=== PATIENT | female | born 1955 | race Caucasian/White ===

== ENCOUNTER 2021-11-15 19:21 | Observation (INO) | payer MEDICARE, OTHER, SELFPAY ==
[2021-11-15 19:25] VITALS: BP 149/72; PULSE 86; RESP 16; TEMP 36.6; O2SAT 94
--- NOTE | 2021-11-15 19:30 | RT.EKG_ITS ---
APPROVED REPORT Exam: Resting ECG Reason for Exam: dizzy Patient Location: E HR:73 bpm ECG Measurements Heart Rate 73 AXIS WA 154 P 65 QRSd 121 QRS -60 QT 393 T 50 QTc 433 Conclusion Sinus rhythm...normal P axis, V-rate 60- 99 Left ventricular hypertrophy...multiple LVH criteria. Sinus. No STEMI. I have reviewed and interpreted ECG and agree with software generated interpretation.
--- NOTE | 2021-11-15 20:00 | DI.RAD_ITS ---
Exam(s) XR CHEST 2V PA LATERAL EXAM: XR CHEST 2V PA LATERAL CLINICAL HISTORY: fall, HI, arm injury TECHNIQUE: 2D digital imaging was performed. COMPARISON: No exams were available for comparison FINDINGS: Exam is limited by the patient's arm overlying the lower portion of left lung. MEDIASTINUM: Normal. HEART: Normal. PULMONARY VASCULATURE: Normal. LUNGS: Clear. PLEURAL SPACE: No pleural effusion or pneumothorax. BONE:Unremarkable for age. IMPRESSION: No acute abnormality. DATA REPOSITORY: RADIATION DOSE DELIVERED:
--- NOTE | 2021-11-15 20:00 | DI.RAD_ITS ---
Exam(s) XR HUMERUS RT EXAM: XR HUMERUS RT CLINICAL HISTORY: fall, pain. TECHNIQUE: 2D digital imaging was performed. COMPARISON: No exams were available for comparison FINDINGS: BONES: No acute fracture is present. No bony destructive lesion is seen. Visualized portion of the el bow are unremarkable. Degenerative changes are noted at the glenohumeral joint and AC joints. SOFT TISSUE: Normal. IMPRESSION: Unremarkable radiographs of the right humerus. DATA REPOSITORY: RADIATION DOSE DELIVERED:
--- NOTE | 2021-11-15 20:00 | DI.CT_ITS ---
Exam(s) CT HEAD CERVICAL SPINE WO EXAM: CT HEAD CERVICAL SPINE WO CLINICAL HISTORY: fall, HI. TECHNIQUE: Imaging Protocol: Axial computed tomography images with coronal and sagittal reformatted images were created and reviewed COMPARISON: No exams were available for comparison FINDINGS: Head CT Ventricles and Extra axial spaces: Normal in size and morphology for the patient's age. Hemorrhage: None. Cerebral parenchyma: Normal. Midline shift: None. Brainstem/Cerebellum: Normal. Calvarium: Normal. Visualized Paranasal sinuses/Mastoids: Clear. Cervical Spine CT BONES: Vertebral body heights are maintained. Alignment is normal. There is no evidence of acute frac ture. Mild degenerative disc changes and facet degenerative changes are seen . SOFT TISSUES: No paraspinal hematoma. The airway appears intact. No pneumothorax is seen at the lung apices. IMPRESSION: Head CT: No acute abnormality. C-spine CT: Mild degenerative changes, no acute abnormality. RADIATION DOSE DELIVERED: 1,440.74mGy.cm Total DLP DATA REPOSITORY: All CT scans at this facility are submitted to the National Radiology Data Registry (NRDR) Dose Index Registry (DIR) with the [employer] (ACR). RADIATION OPTIMIZATION: All CT scans at this facility use at least one of these dose optimization te chniques: automated exposure control; mA and/or kV adjustment per patient size (includes targeted exa ms where dose is matched to clinical indication); or iterative reconstruction.
[2021-11-15] MEDS: fentaNYL 100 MCG/2 ML VIAL (20:08)
[2021-11-15] MEDS: Lactated Ringers 1,000 ML 1000 ML IV (20:32)
[2021-11-15] MEDS: Acetaminophen 325 MG TAB 650 MG PO (20:33)
[2021-11-15] MEDS: HYDROmorphone 2 MG/ML SYR 0.5 MG IVP ×2 (20:33→22:14)
[2021-11-15 20:45] LABS: Abs Immature Grans 0.02 10^3/uL (0.0-0.06); Absolute Basophil Count 0.03 10^3/uL (0.0-0.2); Absolute Lymphocyte Count 2.19 10^3/uL (1.2-3.4); Absolute Monocyte Count 0.58 10^3/uL (0.1-0.8); Absolute Neutrophil Count 4.05 10^3/uL (1.2-6.7); Basophils % 0.4; HCT 41.1 % (36.0-46.0); Immature Grans % 0.3; Lymphocytes % 31.9; MCH 31.7 pg (27.0-33.0); MCHC 34.1 % (32.0-36.0); MCV 93 fL (80-95); MPV 10.9 fL (8.0-11.0); Monocytes % 8.4; Platelet Count 195 10^3/uL (130-400); RBC 4.41 10^6/uL (3.93-5.22); RDW 12.9 % (11.7-14.6); RDW-SD 44.2 fL; WBC 6.87 10^3/uL (4.4-10.8)
[2021-11-15 21:09] LABS: ALT 41 U/L (14-59); AST 31 U/L (15-37); Albumin 3.8 g/dL (3.4-5.0); Alkaline Phosphatase 79 U/L (46-116); Anion Gap 10.2 mmol/L (3-11); BUN 16 mg/dL (7-18); Bilirubin, Total 0.6 mg/dL (0.2-1.0); CO2 25.8 mmol/L (21.0-32.0); CREATININE 0.9 mg/dL (0.55-1.02); Chloride 105 mmol/L (98-107); Estimated GFR 70.51 (mL/min/1.73m2); Glucose 99 mg/dL (74-106); Magnesium 1.8 mg/dL (1.8-2.4); Potassium 3.5 mmol/L (3.5-5.1); Sodium 141 mmol/L (136-145); Total Protein 7.6 g/dL (6.4-8.2); Troponin I < 50 ng/L (<or=60)
--- NOTE | 2021-11-15 21:15 | DI.RAD_ITS ---
Exam(s) XR SHOULDER RT COMPLETE 2+V EXAM: XR SHOULDER RT COMPLETE 2+V CLINICAL HISTORY: pain post fall. TECHNIQUE: 2D digital imaging was performed. Five views. COMPARISON: CR,XR XR CHEST 2V PA LATERAL from 11/15/2021 FINDINGS: BONES: No acute fracture is present. No bony destructive lesion is seen. JOINTS: No dislocation present. There is spurring at the AC joint and glenohumeral joint. SOFT TISSUE: Normal. IMPRESSION: Degenerative changes. No visible acute fracture. DATA REPOSITORY: RADIATION DOSE DELIVERED:
--- NOTE | 2021-11-15 21:15 | DI.VRAD_ITS ---
PROCEDURE INFORMATION: Exam: CT Head Without Contrast Exam date and time: 11/15/2021 8:35 PM Age: 66 years old Clinical indication: Trauma, fall TECHNIQUE: Imaging protocol: Computed tomography of the head without contrast. COMPARISON: No relevant prior studies available. FINDINGS: Brain: No intracranial hemorrhage or extra-axial fluid collection. No evidence of mass effect or midline shift. Velasco-white matter differentiation is intact. Cerebral ventricles: No ventriculomegaly. Paranasal sinuses: Unremarkable. No fluid levels. Mastoid air cells: Unremarkable. Bones/joints: No acute osseus lesion or fracture. Soft tissues: Unremarkable. IMPRESSION: No acute intracranial pathology. PROCEDURE INFORMATION: Exam: CT Cervical Spine Without Contrast Exam date and time: 11/15/2021 8:35 PM Age: 66 years old Clinical indication: Trauma, fall TECHNIQUE: Imaging protocol: Computed tomography of the cervical spine without contrast. COMPARISON: No relevant prior studies available. FINDINGS: Bones/joints: Cervical vertebral body heights are maintained. No locked or perched facets. Multilevel facet arthropathy. No acute cervical spine fracture. The dens is intact. Atlanto-axial intervals are normal. Multilevel degenerative changes with intervertebral disc height loss and osteophyte formation, with multilevel areas of mild canal stenosis. Soft tissues: Unremarkable. IMPRESSION: No acute cervical spine fracture. Dictated and Authenticated by: Tejinder Alexis MD. Ordering:MAGGIE Stone MD
--- NOTE | 2021-11-15 21:15 | DI.RAD_ITS ---
Exam(s) XR ELBOW RT COMPLETE EXAM: XR ELBOW RT COMPLETE CLINICAL HISTORY: fall, pain. TECHNIQUE: 2D digital imaging was performed. Two limited views. COMPARISON: CR,XR XR SHOULDER RT COMPLETE 2+V from 11/15/2021 FINDINGS: The exam is extremely limited by positioning. BONES: No acute fracture is present. No bony destructive lesion is seen. JOINTS: The elbow is normally aligned. No joint effusion is seen. SOFT TISSUE: Normal. IMPRESSION: Limited exam. No gross fracture. DATA REPOSITORY: RADIATION DOSE DELIVERED:
--- NOTE | 2021-11-15 21:35 | DI.VRAD_ITS ---
PROCEDURE INFORMATION: Exam: XR Chest Exam date and time: 11/15/2021 8:56 PM Age: 66 years old Clinical indication: Other: Fall, TECHNIQUE: Imaging protocol: Radiologic exam of the chest. Views: 2 views. COMPARISON: CR XR HUMERUS RT 11/15/2021 8:53 PM FINDINGS: Lungs: The left lung base is not well assessed secondary to overlying arm. If there is concern for abnormality in this region, a repeat radiograph is recommended with the arm, if possible, positioned outside of the field of view. There is a 3 mm nodular density overlying the left lower lung which may represent something external to the patient. Elsewhere, no focal consolidation is seen. Pleural spaces: No pneumothorax. There is haziness to the right costophrenic angle for which a small effusion is not excluded. Heart/Mediastinum: The cardiomediastinal contours are within normal limits. Diaphragm: There is elevation of the right hemidiaphragm. Bones/joints: There are skeletal degenerative changes. There is a possible fracture to the left glenoid region. IMPRESSION: 1.The left lung base is not well assessed secondary to overlying arm. There is a 3 mm nodular density overlying the left lower lung which may represent something external to the patient. For further evaluation of both of these findings, a repeat frontal radiograph is recommended with the left forearm, if possible, positioned outside of the field of view. In addition, the patient should be assessed for overlying densities. 2. Haziness to the right costophrenic angle for which a small effusion is not excluded. 3. Possible fracture to the left glenoid. Dedicated left shoulder radiographs recommended. 4. Elevation of the right hemidiaphragm. Other findings/details as above. Dictated and Authenticated by: Michelle Araujo MD. Ordering:MAGGIE Stone MD
--- NOTE | 2021-11-15 21:36 | DI.VRAD_ITS ---
Addendum created by Michelle Araujo MD on 11/15/2021 10:20:34 PM EDT: THIS REPORT CONTAINS FINDINGS THAT MAY BE CRITICAL TO PATIENT CARE. The findings were verbally communicated via telephone conference with Bertha Ortiz at 10:14 PM EDT on 11/15/2021. The findings were acknowledged and understood. The patient is having pain in both her right humerus and elbow. Shoulder and elbow radiographs were also reviewed. Please refer to those reports. A CT scan of the right shoulder/humerus/and elbow regions was recommended. Initial report created on 11/15/2021 9:35:54 PM EDT: PROCEDURE INFORMATION: Exam: XR Right Humerus Exam date and time: 11/15/2021 8:53 PM Age: 66 years old Clinical indication: Other: Fall, pain TECHNIQUE: Imaging protocol: Radiologic exam of the Right humerus. Views: 2 or more views. COMPARISON: CT HEAD CERVICAL SPINE WO 11/15/2021 8:35 PM FINDINGS: Bones/joints: No acute fracture or dislocation identified. There are skeletal degenerative changes. Soft tissues: No unusual soft tissue calcifications. IMPRESSION: 1. No acute fracture or dislocation identified. If symptoms persist or remain concerning, consider follow-up imaging in 7 days or alternative imaging modalities. Dictated and Authenticated by: Michelle Araujo MD. Ordering:MAGGIE Stone MD
--- NOTE | 2021-11-15 21:51 | W.ED.GENAD ---
Discharge Plan Disposition Patient Disposition: [facility] INPATIENT Condition: Improving Discharge Details Clinical Impression: Pre-syncope, Elbow fracture, right Admit Date/Time: 11/15/21 23:46 Admit Provider: Yayo Akbar Attending Provider: Yayo Akbar Primary Care Provider: M[facility],Local ED Provider: Bertha Ortiz Discharge Data Discharge Date/Time-TO BE ENTERED AT DEPARTURE: 11/16/21 00:48 Medical Decision Making Patient unfortunately has been in significant discomfort, she was placed in a posterior splint and sling She will need outpatient orthopedic follow-up Unfortunately while we are placing the splint, the patient was very nauseous and presyncopal, she is unable to stand and ambulate and is in significant pain She will need admission overnight for observation, fluid resuscitation, and pain control She is visiting from [place] so will need a copy of her CD and Ortho follow-up when she returns from She is neurovascularly intact Her CT head and cervical spine do not show evidence of acute abnormality, chest x-ray is within normal limits She had numerous x-rays ordered and I spoke with virtual radiologist recommends CT imaging, this does show that patient has a fracture to her elbow consisting of ulna and humerus involvement Medical Records Medical records reviewed: Yes I reviewed the patient's medical records. Lab Data Lab results reviewed: Yes I reviewed the patient's lab results. HPI General Date/Time Provider Initiated Documentation: 11/15/21 19:57. HPI Narrative: This 66-year-old female presents today for episode of lightheadedness and subsequent fall. She states that she had not had anything to eat or drink today and was getting ready for a attendance. She states that she was walking on the stairs and felt lightheaded, reportedly fell down 3 steps. Uncertain whether or not she lost consciousness. She landed on her back. She is unsure if she hit her head. She denies any vision change or vomiting. She did have some mild nausea. She predominantly is complaining of right elbow and humerus tenderness. She denies anticoagulation. She denies any chest pain or palpitations prior to episode. She denies any dizziness. Related Data Home Medications Medication Instructions Recorded Confirmed atorvastatin 10 mg tablet (Lipitor) 10 mg PO DAILY 11/15/21 11/15/21 escitalopram oxalate 20 mg tablet 30 mg PO DAILY 11/15/21 11/15/21 (Lexapro) famotidine 40 mg/5 mL (8 mg/mL) 40 mg PO DAILY 11/15/21 11/15/21 oral suspension fluticasone propionate 220 2 puff inhalation BID 11/15/21 11/15/21 mcg/actuation HFA aerosol inhaler lamotrigine 100 mg tablet 100 mg PO DAILY 11/15/21 11/15/21 (Lamictal) ibuprofen 800 mg tablet 800 mg PO TID PRN #30 tabs 11/16/21 tramadol 50 mg tablet 50 mg PO Q8H PRN #30 tabs 11/16/21 Previous Rx's Medication Instructions Recorded ibuprofen 800 mg tablet 800 mg PO TID PRN #30 tabs 11/16/21 tramadol 50 mg tablet 50 mg PO Q8H PRN #30 tabs 11/16/21 Allergies Allergy/AdvReac Type Severity Reaction Status Date / Time codeine Allergy Severe Itching Unverified 11/15/21 19:41 levofloxacin [From Levaquin] AdvReac Intermediate Headache Unverified 11/15/21 19:41 morphine AdvReac Intermediate Other (See Unverified 11/15/21 19:42 Comment) General Stated Complaint: GenMedical SAUL: 3 Review of Systems All systems reviewed & are unremarkable except as noted in HPI and below PFSH All Active Problems (Updated 11/17/21 @ 00:01 by FOREST CORTES) Reactive airway disease (Acute) Elbow fracture, right (Acute) Social History Smoking/Tobacco Use Status: Never Smoking risk assessment performed?: Yes Alcohol Intake: current Alcohol Intake frequency: 0-2 drinks per day Alcohol type: wine Drug use: Never Substance use type: does not use Do you feel safe at home: Yes Do you feel safe in your relationship?: Yes Exam Const General: cooperative and acute distress Orientation: alert and oriented x3 HENMT Head: normal to inspection Mouth: oral mucosae normal Eyes Pupils: PERRL Neck Other: no midline tenderness Chest Chest: normal inspection of the chest Resp Effort & Inspection: normal respiratory effort Auscultation: clear to auscultation bilaterally Cardio Rate: regular rate Rhythm: regular rhythm Other: distal pulses intact GI Inspection: normal to inspection Other: non-tender Skin General skin exam: no rashes or lesions noted Neuro General: patient alert and patient oriented x3 Other: GCS 15, strength and sensation intactdistally Extrem Other: Right elbow, humerus, right shoulder tenderness, neurovascularly intact Course Vital Signs Vital signs: Vital Signs Temperature 36.6 C 11/15/21 19:25 Pulse 86 11/15/21 19:25 Respiratory Rate 16 11/15/21 19:25 Blood Pressure 149/72 H 11/15/21 19:25 Pulse Oximetry 94 11/15/21 19:25 Temperature 36.6 C 11/15/21 19:25 Temperature Source Oral 11/15/21 19:25 Pulse 86 11/15/21 19:25 Respiratory Rate 16 11/15/21 19:25 Respiratory Effort Non-Labored 11/15/21 19:48 Blood Pressure 149/72 H 11/15/21 19:25 Blood Pressure Position Sitting 11/15/21 19:25 Pulse Oximetry 94 11/15/21 19:25 Oxygen Delivery Method Room Air 11/15/21 19:25 Oxygen Flow Rate 0 11/15/21 19:25 Pain Level 10 11/15/21 19:25 Lab/Test Results Lab/Test Results: Laboratory Tests Range/Units 11/15/21 11/15/21 11/15/21 20:08 20:08 20:15 WBC Cancelled RBC Cancelled Hgb Cancelled Hct Cancelled MCV Cancelled MCH Cancelled MCHC Cancelled RDW Cancelled Plt Count Cancelled MPV Cancelled Immature Gran % Cancelled Neutrophils % Cancelled Band Neutrophils % Cancelled Lymphocytes % Cancelled Atypical Lymphs % Cancelled Monocytes % Cancelled Eosinophils % Cancelled Basophils % Cancelled Metamyelocytes % Cancelled Myelocytes % Cancelled Promyelocytes % Cancelled Other Cells % Cancelled Nucleated RBC % Cancelled Absolute Neutrophils Cancelled Absolute Lymphocytes Cancelled Absolute Monocytes Cancelled Absolute Eosinophils Cancelled Absolute Basophils Cancelled RBC Morphology Cancelled Polychromasia Cancelled Hypochromasia Cancelled Poikilocytosis Cancelled Basophilic Stippling Cancelled Anisocytosis Cancelled Microcytosis Cancelled Macrocytosis Cancelled Spherocytes Cancelled Tear Drop Cells Cancelled Ovalocytes Cancelled Stomatocytes Cancelled Fowler-Sleepy Eye Bodies Cancelled Mantee Cells/Echinocytes Cancelled Acanthocytes (Spur) Cancelled Schistocytes Cancelled Sodium Cancelled 141 Potassium Cancelled 3.5 Chloride Cancelled 105 Carbon Dioxide Cancelled 25.8 Anion Gap Cancelled 10.2 BUN Cancelled 16 Creatinine Cancelled 0.9 Est GFR (CKD-EPI 2020) Cancelled 70.51 Glucose Cancelled 99 Calcium Cancelled 9.0 Magnesium Cancelled 1.8 Total Bilirubin Cancelled 0.6 AST Cancelled 31 ALT Cancelled 41 Alkaline Phosphatase Cancelled 79 Troponin I (<or=60) ng/L < 50 Total Protein Cancelled 7.6 Albumin Cancelled 3.8 Range/Units 11/15/21 20:15 WBC 6.87 RBC 4.41 Hgb 14.0 Hct 41.1 MCV 93 MCH 31.7 MCHC 34.1 RDW 12.9 Plt Count 195 MPV 10.9 Immature Gran % 0.3 Neutrophils % 59.0 Band Neutrophils % Lymphocytes % 31.9 Atypical Lymphs % Monocytes % 8.4 Eosinophils % 0.0 Basophils % 0.4 Metamyelocytes % Myelocytes % Promyelocytes % Other Cells % Nucleated RBC % 0.0 Absolute Neutrophils 4.05 Absolute Lymphocytes 2.19 Absolute Monocytes 0.58 Absolute Eosinophils 0.00 Absolute Basophils 0.03 RBC Morphology Polychromasia Hypochromasia Poikilocytosis Basophilic Stippling Anisocytosis Microcytosis Macrocytosis Spherocytes Tear Drop Cells Ovalocytes Stomatocytes Fowler-Sleepy Eye Bodies Phil Cells/Echinocytes Acanthocytes (Spur) Schistocytes Sodium Potassium Chloride Carbon Dioxide Anion Gap BUN Creatinine Est GFR (CKD-EPI 2020) Glucose Calcium Magnesium Total Bilirubin AST ALT Alkaline Phosphatase Troponin I (<or=60) ng/L Total Protein Albumin
--- NOTE | 2021-11-15 22:09 | DI.VRAD_ITS ---
Addendum created by Michelle Araujo MD on 11/15/2021 10:19:07 PM EDT: THIS REPORT CONTAINS FINDINGS THAT MAY BE CRITICAL TO PATIENT CARE. The findings were verbally communicated via telephone conference with Bertha Ortiz at 10:14 PM EDT on 11/15/2021. The findings were acknowledged and understood. The patient is having pain in both her right humerus and elbow. Right elbow radiographs were also reviewed. Given exam limitations on the right elbow radiographs, a CT scan of the right shoulder/humerus/and elbow regions was recommended. Initial report created on 11/15/2021 10:08:38 PM EDT: PROCEDURE INFORMATION: Exam: XR Right Shoulder Exam date and time: 11/15/2021 9:49 PM Age: 66 years old Clinical indication: Other: Fall, pain TECHNIQUE: Imaging protocol: Radiologic exam of the Right shoulder. Views: 2 or more views. COMPARISON: CR XR HUMERUS RT 11/15/2021 8:53 PM FINDINGS: Bones/joints: There are lucencies in the humeral head on series 3, image 1 which could represent subtle fractures. CT scan recommended for further evaluation. There are skeletal degenerative changes. Soft tissues: No unusual soft tissue calcifications. IMPRESSION: 1. There are lucencies in the humeral head on series 3, image 1 which could represent subtle fractures. CT scan recommended for further evaluation. Other findings/details as above. Dictated and Authenticated by: Michelle Araujo MD. Ordering:MAGGIE Stone MD
--- NOTE | 2021-11-15 22:15 | DI.CT_ITS ---
Exam(s) CT UPPER EXTREMITY RT WO EXAM: CT UPPER EXTREMITY RT WO CLINICAL HISTORY: tenderness right elbow, possible fracture, humueru TECHNIQUE: Imaging Protocol: Axial computed tomography images with coronal and sagittal reformatted images were created and reviewed. The field of view includes from above the AC joint through the pro ximal shafts of the radius and ulna. CONTRAST MATERIAL: Noncontrast COMPARISON: CR,XR XR ELBOW RT COMPLETE from 11/15/2021 CR,XR XR SHOULDER RT COMPLETE 2+V from 11/15/2021 FINDINGS: The exam is limited by patient positioning in part due to body habitus. Bones: There is a fracture seen extending through the proximal ulna without definite intra-articular extension. A tiny comminuted fragment is seen at the coronoid process Joints: There are degenerative changes at the AC joint and glenohumeral joint. There is spurring at the humeral head and tip of the acromion. Degenerative changes are also noted at the elbow. Soft Tissues: Normal. IMPRESSION: Limited exam due to patient body habitus and position. There is a nondisplaced fracture of the proxi mal ulna a small comminuted fracture at the coronoid process. No fracture is seen involving the shou lder. RADIATION DOSE DELIVERED: 343.97mGy.cm Total DLP DATA REPOSITORY: All CT scans at this facility are submitted to the National Radiology Data Registry (NRDR) Dose Index Registry (DIR) with the [employer] (ACR). RADIATION OPTIMIZATION: All CT scans at this facility use at least one of these dose optimization te chniques: automated exposure control; mA and/or kV adjustment per patient size (includes targeted exa ms where dose is matched to clinical indication); or iterative reconstruction.
--- NOTE | 2021-11-15 22:17 | DI.VRAD_ITS ---
PROCEDURE INFORMATION: Exam: XR Right Elbow Exam date and time: 11/15/2021 9:58 PM Age: 66 years old Clinical indication: Other: Fall, pain . The patient is having pain in both her right humerus and elbow. TECHNIQUE: Imaging protocol: Radiologic exam of the Right elbow. Views: 3 or more views. COMPARISON: CR XR SHOULDER RT COMPLETE 2+V 11/15/2021 9:49 PM FINDINGS: Limitations: Compromised examination secondary to overlapping structures and patient positioning. Bones/joints: There is a linear lucency through the medial epicondyle, concerning for fracture. Soft tissues: No unusual soft tissue calcifications. The fat pads are not well assessed. IMPRESSION: 1. Limited examination. There is a linear lucency through the medial epicondyle, concerning for fracture. Other findings/details as above. THIS REPORT CONTAINS FINDINGS THAT MAY BE CRITICAL TO PATIENT CARE. The findings were verbally communicated via telephone conference with Bertha Ortiz at 10:14 PM EDT on 11/15/2021. The findings were acknowledged and understood. The patient is having pain in both her right humerus and elbow. Given exam limitations, a CT scan of the right shoulder/humerus/and elbow regions was recommended. Dictated and Authenticated by: Michelle Araujo MD. Ordering:MAGGIE Stone MD
--- NOTE | 2021-11-15 23:13 | DI.VRAD_ITS ---
PROCEDURE INFORMATION: Exam: CT Right Upper Extremity Without Contrast Exam date and time: 11/15/2021 10:25 PM Age: 66 years old Clinical indication: Other: Tenderness right elbow, possible fracture TECHNIQUE: Imaging protocol: Computed tomography of the Right upper extremity without contrast. COMPARISON: CR XR SHOULDER RT COMPLETE 2+V 11/15/2021 9:49 PM FINDINGS: Bones/joints: Compromised examination secondary to patient positioning. There is a fracture through the lateral aspect of the olecranon process. There is also a possible fracture through the coronoid process of the proximal ulna on series 8, image 33. There is also some irregularity to the lateral epicondyle of the humerus on series 5, image 525; series 8, image 44, which is worrisome for fracture. There are skeletal degenerative changes. Soft tissues: No unusual soft tissue calcifications. IMPRESSION: 1. Compromised examination secondary to patient positioning. 2. Fracture through the lateral aspect of the olecranon process of the ulna. Possible fracture through the coronoid process of the proximal ulna. 3. Irregularity to the lateral epicondyle of the humerus, also worrisome for fracture. Other findings/details as above. Dictated and Authenticated by: Michelle Araujo MD. Ordering:MAGGIE Stone MD
[2021-11-16] VITALS (7 sets, daily range): BP systolic 109–160; BP diastolic 69–83; PULSE 66–92; RESP 12–20; TEMP 35.6–36.4; O2SAT 86–98
[2021-11-16] MEDS: Metoclopramide 10 MG/2 ML VIAL IVP ×2 (00:23→07:21)
[2021-11-16] MEDS: fentaNYL 100 MCG/2 ML VIAL 50 MCG IVP ×3 (00:23→05:54)
[2021-11-16] MEDS: Famotidine 20 MG TAB 40 MG PO ×2 (00:24→10:18)
[2021-11-16 00:33] LABS: Source Nasal/Nares
[2021-11-16] MEDS: Normal Saline 1,000 ML 125 ML IV (00:57)
[2021-11-16 01:05] LABS: COVID-19 PCR Negative (Negative)
[2021-11-16] MEDS: Ondansetron 4 MG/2 ML VIAL IVP ×2 (01:45→09:01)
--- NOTE | 2021-11-16 06:11 | HPE_ITS ---
Date of service: 11/15/21 Time of Service: 23:30 Assessment and Plan Assessment and plan (1) Pre-syncope: Start date: 11/15/21 Status: Acute Assessment and plan: This is a 66-year-old lady who is visiting and had a day of decreased intake feeling lightheaded and falling forward passing out with no memory of the event falling down 3 steps injuring her right side. She had no symptoms after the event but was lightheaded in the emergency room when attempting to get comfortable to return home. She was observed overnight with no events on cardiac monitoring and was having only intermittent lightheadedness as she arose. She was having side effects of narcotics in the ED and this continues to be problematic for the patient. She has nausea with narcotics. She may need further evaluation as an outpatient if she has any returning symptoms but presently needs pain control without side effects to return home and will need to follow-up with orthopedics for her elbow but this is nonurgent and could be done when she returns to [place]. (2) Elbow fracture, right: Start date: 11/15/21 Status: Acute Assessment and plan: Involvement of distal humerus and olecranon with orthopedics to review. Posterior splint with pain control trying to minimize narcotics because of side effects. Celebrex will be initiated patient will see PT and OT before being discharged home to assure safe ambulation and education on how to take care of herself for traveling back home to [place]. History of Present Illness History of Present Illness Chief Complaint: Dizziness with fall Narrative: This is a 66-year-old female patient who flew in from [place] to attend her mother's for celebration of life having had her formal earlier in the year during the winter. She states that she was happy to be home and getting her mother's house ready for family who are coming to the event. She did not eat or drink well the day of admission. The patient went to the door to greet her brother who just arrived not rushing but suddenly felt dizzy, falling forward over 3 steps onto her right side without recall of the event and awakening looking up at her brother. She did have pain in her right elbow and shoulder after the fall but did not have any incontinence of urine or stool and did not have any headache, vision changes or nausea and vomiting. There is no seizure activity. Patient did not feel short of breath or diaphoretic and had no chest discomfort prior to the event. She was brought to the emergency department for evaluation and thorough evaluation did not not reveal any abnormalities of the head or cervical spine but did reveal fractures in the right elbow including the humerus and ulna. To put in a posterior splint and attempted to get up to leave the ED but felt extremely dizzy and has some slight nausea. She felt that she may pass out again. She is intolerant of narcotics and these were being used for pain control in the ED. She was admitted for observation for monitoring of her heart and for pain management trying to avoid side effects of narcotics. She is a full code. Review of Systems Narrative: 13 point review of systems otherwise unrevealing. Patient has had no leg swelling or calf pain. She has no focal neurological complaints after event. She denies headache. PFSH All Active Problems Reactive airway disease (Acute) Pre-syncope (Acute) Elbow fracture, right (Acute) Social History Smoking/Tobacco Use Status: Never Smoking risk assessment performed?: Yes Alcohol Intake: current Alcohol Intake frequency: 0-2 drinks per day Alcohol type: wine Drug use: Never Substance use type: does not use Do you feel safe at home: Yes Do you feel safe in your relationship?: Yes Meds Allergies and Home Medications Allergies Allergy/AdvReac Type Severity Reaction Status Date / Time codeine Allergy Severe Itching Unverified 11/15/21 19:41 levofloxacin [From Levaquin] AdvReac Intermediate Headache Unverified 11/15/21 19:41 morphine AdvReac Intermediate Other (See Unverified 11/15/21 19:42 Comment) Home Medications Medication Instructions Recorded Confirmed Type atorvastatin 10 mg tablet (Lipitor) 10 mg PO DAILY 11/15/21 11/15/21 History escitalopram oxalate 20 mg tablet 30 mg PO DAILY 11/15/21 11/15/21 History (Lexapro) famotidine 40 mg/5 mL (8 mg/mL) 40 mg PO DAILY 11/15/21 11/15/21 History oral suspension fluticasone propionate 220 2 puff inhalation BID 11/15/21 11/15/21 History mcg/actuation HFA aerosol inhaler lamotrigine 100 mg tablet 100 mg PO DAILY 11/15/21 11/15/21 History (Lamictal) ibuprofen 800 mg tablet 800 mg PO TID PRN #30 tabs 11/16/21 Rx tramadol 50 mg tablet 50 mg PO Q8H PRN #30 tabs 11/16/21 Rx Exam Narrative Exam Narrative: General: Patient appears slightly uncomfortable lying in bed with head at a 45 degree angle and her right elbow in a posterior splint wrapped in dry dressing. She is alert and oriented x3. She is moderately obese. HEENT: Normocephalic, eyes with pupils equal react light symmetrically, extraocular movement intact and sclera anicteric. Oropharynx with moist mucosa and good dentition. Neck: Supple without JVD. No auscultated bruits. Lungs: Clear to auscultation percussion. Heart: Regular rate and rhythm with no murmurs or gallops appreciated. Breast: Exam deferred. Abdomen: Soft with obese contour, nontender to palpation with no palpable hepatosplenomegaly. Bowel sounds positive all quadrants. Genitalia/rectal: Exam deferred. Extremities: Without clubbing, cyanosis or pitting edema. Good peripheral pulses. Right upper extremity with elbow and posterior splint and immobilized not fully examined but shoulder with fair range of motion. Right hand with good capillary refill. Skin: Normal color, warm and dry. Neuro: Cranial nerves II through XII gross intact, no focal motor deficits. No tremor. Psych: Normal affect and mood. No abnormal thought processes. Remote and recent memory intact. Results Imaging Imaging Studies: Exam: CT Right Upper Extremity Without Contrast Exam date and time: 11/15/2021 10:25 PM Age: 66 years old Clinical indication: Other: Tenderness right elbow, possible fracture TECHNIQUE: Imaging protocol: Computed tomography of the Right upper extremity without contrast. COMPARISON: CR XR SHOULDER RT COMPLETE 2+V 11/15/2021 9:49 PM FINDINGS: Bones/joints:? Compromised examination secondary to patient positioning. There is a fracture through the lateral aspect of the olecranon process.? There is also a possible fracture through the coronoid process of the proximal ulna on series 8, image 33.? There is also some irregularity to the lateral epicondyle of the humerus on series 5, image 525; series 8, image 44, which is worrisome for fracture. There are skeletal degenerative changes. Soft tissues:? No unusual soft tissue calcifications. IMPRESSION: 1. Compromised examination secondary to patient positioning. 2. Fracture through the lateral aspect of the olecranon process of the ulna.? Possible fracture through the coronoid process of the proximal ulna. 3. Irregularity to the lateral epicondyle of the humerus, also worrisome for fracture. Other findings/details as above. Exam: XR Chest Exam date and time: 11/15/2021 8:56 PM Age: 66 years old Clinical indication: Other: Fall, TECHNIQUE: Imaging protocol: Radiologic exam of the chest. Views: 2 views. COMPARISON: CR XR HUMERUS RT 11/15/2021 8:53 PM FINDINGS: Lungs: The left lung base is not well assessed secondary to overlying arm. If there is concern for abnormality in this region, a repeat radiograph is recommended with the arm, if possible, positioned outside of the field of view. ?There is a 3 mm nodular density overlying the left lower lung which may represent something external to the patient.? Elsewhere, no focal consolidation is seen. Pleural spaces: No pneumothorax.? There is haziness to the right costophrenic angle for which a small effusion is not excluded. Heart/Mediastinum: The cardiomediastinal contours are within normal limits. Diaphragm: There is elevation of the right hemidiaphragm. Bones/joints: There are skeletal degenerative changes.? There is a possible fracture to the left glenoid region. IMPRESSION: 1.The left lung base is not well assessed secondary to overlying arm.? There is a 3 mm nodular density overlying the left lower lung which may represent something external to the patient.? For further evaluation of both of these findings, a repeat frontal radiograph is recommended with the left forearm, if possible, positioned outside of the field of view. In addition, the patient should be assessed for overlying densities. 2. Haziness to the right costophrenic angle for which a small effusion is not excluded. 3. Possible fracture to the left glenoid. Dedicated left shoulder radiographs recommended. 4. Elevation of the right hemidiaphragm. Other findings/detailed above. Exam: CT Head Without Contrast Exam date and time: 11/15/2021 8:35 PM Age: 66 years old Clinical indication:? Trauma, fall TECHNIQUE: Imaging protocol: Computed tomography of the head without contrast. COMPARISON: No relevant prior studies available. FINDINGS: Brain: No intracranial hemorrhage or extra-axial fluid collection. No evidence of mass effect or midline shift. Velasco-white matter differentiation is intact. Cerebral ventricles: No ventriculomegaly. Paranasal sinuses: Unremarkable. No fluid levels. Mastoid air cells: Unremarkable. Bones/joints: No acute osseus lesion or fracture. Soft tissues: Unremarkable. IMPRESSION: No acute intracranial pathology. PROCEDURE INFORMATION: Exam: CT Cervical Spine Without Contrast Exam date and time: 11/15/2021 8:35 PM Age: 66 years old Clinical indication: Trauma, fall TECHNIQUE: Imaging protocol: Computed tomography of the cervical spine without contrast. COMPARISON: No relevant prior studies available. FINDINGS: Bones/joints: Cervical vertebral body heights are maintained. No locked or perched facets. Multilevel facet arthropathy. No acute cervical spine fracture. The dens is intact. Atlanto-axial intervals are normal. Multilevel degenerative changes with intervertebral disc height loss and osteophyte formation, with multilevel areas of mild canal stenosis. Soft tissues: Unremarkable. IMPRESSION: No acute cervical spine fracture. Labs Result diagrams: 11/16/21 07:30 11/16/21 07:30 Labs: Laboratory Results - last 24 hr 11/15/21 11/15/21 11/15/21 20:08 20:08 20:15 WBC Cancelled RBC Cancelled Hgb Cancelled Hct Cancelled MCV Cancelled MCH Cancelled MCHC Cancelled RDW Cancelled Plt Count Cancelled MPV Cancelled Immature Gran % Cancelled Neutrophils % Cancelled Band Neutrophils % Cancelled Lymphocytes % Cancelled Atypical Lymphs % Cancelled Monocytes % Cancelled Eosinophils % Cancelled Basophils % Cancelled Metamyelocytes % Cancelled Myelocytes % Cancelled Promyelocytes % Cancelled Other Cells % Cancelled Nucleated RBC % Cancelled Absolute Neutrophils Cancelled Absolute Lymphocytes Cancelled Absolute Monocytes Cancelled Absolute Eosinophils Cancelled Absolute Basophils Cancelled RBC Morphology Cancelled Polychromasia Cancelled Hypochromasia Cancelled Poikilocytosis Cancelled Basophilic Stippling Cancelled Anisocytosis Cancelled Microcytosis Cancelled Macrocytosis Cancelled Spherocytes Cancelled Tear Drop Cells Cancelled Ovalocytes Cancelled Stomatocytes Cancelled [place] Bodies Cancelled Phil Cells/Echinocytes Cancelled Acanthocytes (Spur) Cancelled Schistocytes Cancelled Sodium Cancelled 141 Potassium Cancelled 3.5 Chloride Cancelled 105 Carbon Dioxide Cancelled 25.8 Anion Gap Cancelled 10.2 BUN Cancelled 16 Creatinine Cancelled 0.9 Est GFR (CKD-EPI 2020) Cancelled 70.51 Glucose Cancelled 99 Calcium Cancelled 9.0 Magnesium Cancelled 1.8 Total Bilirubin Cancelled 0.6 AST Cancelled 31 ALT Cancelled 41 Alkaline Phosphatase Cancelled 79 Troponin I < 50 Total Protein Cancelled 7.6 Albumin Cancelled 3.8 COVID-19 Source SARS-CoV-2 (PCR) 11/15/21 11/16/21 20:15 00:20 WBC 6.87 RBC 4.41 Hgb 14.0 Hct 41.1 MCV 93 MCH 31.7 MCHC 34.1 RDW 12.9 Plt Count 195 MPV 10.9 Immature Gran % 0.3 Neutrophils % 59.0 Band Neutrophils % Lymphocytes % 31.9 Atypical Lymphs % Monocytes % 8.4 Eosinophils % 0.0 Basophils % 0.4 Metamyelocytes % Myelocytes % Promyelocytes % Other Cells % Nucleated RBC % 0.0 Absolute Neutrophils 4.05 Absolute Lymphocytes 2.19 Absolute Monocytes 0.58 Absolute Eosinophils 0.00 Absolute Basophils 0.03 RBC Morphology Polychromasia Hypochromasia Poikilocytosis Basophilic Stippling Anisocytosis Microcytosis Macrocytosis Spherocytes Tear Drop Cells Ovalocytes Stomatocytes [place] Bodies Phil Cells/Echinocytes Acanthocytes (Spur) Schistocytes Sodium Potassium Chloride Carbon Dioxide Anion Gap BUN Creatinine Est GFR (CKD-EPI 2020) Glucose Calcium Magnesium Total Bilirubin AST ALT Alkaline Phosphatase Troponin I Total Protein Albumin COVID-19 Source Nasal/Nares SARS-CoV-2 (PCR) Negative Last Vital Signs Temp 36.4 C L 11/16/21 02:57 Pulse 67 09/03/22 02:57 Resp 19 11/16/21 02:57 BP 136/78 11/16/21 02:57 Pulse Ox 94 11/16/21 02:57
[2021-11-16] MEDS: Heparin 5,000 UNITS/ML VIAL 5000 UNITS SC (06:22)
[2021-11-16] MEDS: Normal Saline Flush 10 ML SYR IVP ×2 (07:21→09:01)
[2021-11-16 08:02] LABS: Abs Immature Grans 0.01 10^3/uL (0.0-0.06); Absolute Basophil Count 0.02 10^3/uL (0.0-0.2); Absolute Lymphocyte Count 2.14 10^3/uL (1.2-3.4); Absolute Monocyte Count 0.47 10^3/uL (0.1-0.8); Absolute Neutrophil Count 3.48 10^3/uL (1.2-6.7); Basophils % 0.3; HCT 36.2 % (36.0-46.0); HGB 12.1 g/dL (11.2-15.7); Immature Grans % 0.2; MCH 31.3 pg (27.0-33.0); MCHC 33.4 % (32.0-36.0); MCV 94 fL (80-95); MPV 10.9 fL (8.0-11.0); Monocytes % 7.7; Neutrophils % 56.8; Platelet Count 172 10^3/uL (130-400); RBC 3.87 10^6/uL (3.93-5.22); RDW-SD 44.7 fL; WBC 6.12 10^3/uL (4.4-10.8)
[2021-11-16 08:12] LABS: ALT 37 U/L (14-59); AST 26 U/L (15-37); Alkaline Phosphatase 66 U/L (46-116); Anion Gap 7.2 mmol/L (3-11); BUN 13 mg/dL (7-18); Bilirubin, Total 0.4 mg/dL (0.2-1.0); CO2 25.8 mmol/L (21.0-32.0); CREATININE 0.7 mg/dL (0.55-1.02); Chloride 107 mmol/L (98-107); Estimated GFR 95.32 (mL/min/1.73m2); Glucose 90 mg/dL (74-106); Potassium 3.7 mmol/L (3.5-5.1); Sodium 140 mmol/L (136-145); Total Protein 6.2 g/dL (6.4-8.2)
--- NOTE | 2021-11-16 08:23 | IN_ITS ---
PT Notes Visit Reasons: Presyncopal, Fracture Humerus Inpatient Physical Therapy Evaluation Date: 11/16/21 Referring Doctor: [] PT Orders: PT CONSULT: limited ability to ambulate Precautions: fall, standard Patient Profile/Admitting Diagnosis: Patient admitted 11/15/21 after fall res ulting in right elbow fracture. Fall preceded by dizziness/presyncopal episode. PMHX: Reactive Lung Disease with h/o black mold exposure, on 3LPM at home in [place] Social History/Home Situation: Patient visiting from [place] to attend her mother's , which is in 2 hours. Independent at baseline. Retired nurse. Anxious to discharge. She did not bring her supplemental O2 on the trip with her, stating that she generally does not require supplemental oxygen at this altitude. States that she is active at home, ambulating independently and using a rowing machine daily. She struggles with her breathing with prolonged standing/walking and stair management. Equipment Owned/DME: home O2 Subjective: Elina states that she is nauseous this morning. She's been up to the chair, but was unable to eat any breakfast. Her right elbow remains painful, but manageable. Objective: General Observation: Resting in bed with splinted RUE, supported in sling. Mental Status: A&Ox3. Pleasant and cooperative. Vital Signs: orthostatics measured by nursing just prior to our session and found to be normal. Resting BP 117/85, SaO2 92%. ROM: Right Upper Extremity: not assessed due to fracture Left Upper Extremity: WFL Right Lower Extremity: WFL Left Lower Extremity: WFL Strength: Right Upper Extremity: n/a Left Upper Extremity: grossly 3/5 for all motions Right Lower Extremity: Hip flexion 5/5. Quads 5/5. Ankle DF 5/5 Left Lower Extremity: Hip flexion 5/5. Quads 5/5. Ankle DF 5/5 Sensation: intact to light touch, plantar aspect of each foot Bed Mobility/Transfers: supine-sit: independent sit-supine: independent, although with assist for positioning RUE sit-stand: independent stand-sit: independent Gait: ambulates 120' without AD, supervision only, room air. SaO2 decreases to 86% during ambulation. She recovers in 2 minutes to 91%. Balance: Static Sitting: normal Dynamic Sitting: normal Static Standing: normal Dynamic Standing: good Special Tests: Mobility Limitations Standardized Measure [facility] AM-PAC 6 clicks Basic Mobility Inpatient Short Form: Raw Score: 22 CMS Score: 21% impairment Informed Consent/Education: Patient instructed in purpose of PT consult and plan of care. Assessment: Patient is a 66 year old female referred to physical therapy services with the diagnosis of limited ability to ambulate, following acute care admission for right elbow fx following an episode of dizziness. Patient pres ents with good mobility and demonstration of safe transfers and ambulation, however does demonstrate oxygen desaturation during ambulation. She is on 3lpm at baseline, although has historically not required supplemental oxygen at this altitude (currently visiting from [place]). Reported findings to hospitalist and RT. From a mobility stand-point, she is safe to return to community dwelling once medically stable. She currently demonstrated by the following impairment level findings: 1. oxygen desaturation during ambulation Impairments are contributing to the following functional limitations: 1. decreased activity tolerance Patient is assessed as Moderate 61211 complexity based on the following: History: 66 year old female presenting 1 day s/p right elbow fx after episode of dizziness resulting in fall. Patient has underlying reactive airway disease, and is currently off her supplemental O2. Awaiting further work up with RT. Examination: functional limitations as noted above Presentation: evolving Decision Making: moderate complexity Plan of Care/Treatment Plan: D/C from PT services. DISCHARGE RECOMMENDATIONS: Home with no services once medically cleared. TREATMENT CODE/TIME: 63118 (8:35-9:00) Thank you for this referral! Jazz Carrillo, PT, DPT [facility]
--- NOTE | 2021-11-16 09:21 | PGE_ITS ---
Date of Service Date of service: 11/16/21 Time of Service: 09:21 Assessment and Plan Assessment and plan (1) Elbow fracture, right: Status: Acute Assessment and plan: continue posterior splint and sling and swath. will Rx ibuprofen and tramadol. if oxygen levels are acceptable and CTA chest is negative then I will dc her today so she can go to her mother's /celebration of life event Qualifiers: Encounter type: initial encounter (2) Reactive airway disease: Status: Acute Assessment and plan: continue Flovent as prescribed at home. add albuterol inhaler. She is not ac tively wheezing nor does she have any cough nor any symptomatic dyspnea. However her SPO2 dropped into the mid to high 80's% while P.T. ambulated her. I will have RT recheck ambulatory pulse oximetry and given her syncope and recent travel from [place] to [place], I will get CTA of her chest to rule out P.E. (3) Syncope: Status: Resolved Assessment and plan: No cardiac arrhythmias overnight. Rhythm is NSR Subjective Subjective Interval history since last seen: Patient presented last night after syncopal spell yesterday. She has hx of reactive airway disease secondary to chronic black mold exposure. She lives in [place] but was here for her mother's internment and celebration of life. She normal wears oxygen at 2 LPM but did not bring any portable oxygen with her. She says that she only needs oxygen d/t living at 8500 ft elevation normally when she would visit her mother in [place], she would not need oxygen. She denies any chest pain, dyspnea or leg pain or swelling. She has no hx of PE or DVT. She thinks she was dehydrated d/t inadequate hydration while being very busy cleaning her mother's place, clearing her mothers stuff and cooking and preparing for today's service. She felt lightheaded but passed out briefly before she could sit down and she sustained a fracture to her right elbow (distal humerus condyle and proximal ulna/olecranon. She was put in a posterior splint and sling and admitted overnight for fluid hydration and telemetry monitoring. COVID-19 PCR was negative. She is fully vaccinated and boosted. CXR showed no acute pathology. CT of her head also was negative. Labs were unremarkable (normal CMP, CBC). This morning CBC is still normal although her Hb is lower at 12.1 gm but no symptoms of GI bleeding. This may be dilutional drop in her hemo globin as she did recieve iv fluids overnight. She says that she is seeing jig boring machine operator for metal and a foster parent back in [place] but has not yet had an echocardiogram. Exam Narrative Exam Narrative: Pleasant obese white female lying in bed in semi-Zhang position Alert and oriented x 3 Lungs are clear to anteriorly Heart is RRR (I did not hear her reported aortic murmur); no thrill or heave Legs: no calf or thigh swelling or tenderness; Donaldo sign is absent Objective Last Vital Signs Temp 35.8 C L 11/16/21 07:54 Pulse 67 11/16/21 07:58 Resp 16 11/16/21 07:54 BP 129/79 11/16/21 07:54 Pulse Ox 91 L 11/16/21 07:54 Laboratory Results - last 24 hr 11/15/21 11/15/21 11/15/21 20:08 20:08 20:15 WBC Cancelled RBC Cancelled Hgb Cancelled Hct Cancelled MCV Cancelled MCH Cancelled MCHC Cancelled RDW Cancelled Plt Count Cancelled MPV Cancelled Immature Gran % Cancelled Neutrophils % Cancelled Band Neutrophils % Cancelled Lymphocytes % Cancelled Atypical Lymphs % Cancelled Monocytes % Cancelled Eosinophils % Cancelled Basophils % Cancelled Metamyelocytes % Cancelled Myelocytes % Cancelled Promyelocytes % Cancelled Other Cells % Cancelled Nucleated RBC % Cancelled Absolute Neutrophils Cancelled Absolute Lymphocytes Cancelled Absolute Monocytes Cancelled Absolute Eosinophils Cancelled Absolute Basophils Cancelled RBC Morphology Cancelled Polychromasia Cancelled Hypochromasia Cancelled Poikilocytosis Cancelled Basophilic Stippling Cancelled Anisocytosis Cancelled Microcytosis Cancelled Macrocytosis Cancelled Spherocytes Cancelled Tear Drop Cells Cancelled Ovalocytes Cancelled Stomatocytes Cancelled [place] Bodies Cancelled [place] Cells/Echinocytes Cancelled Acanthocytes (Spur) Cancelled Schistocytes Cancelled Sodium Cancelled 141 Potassium Cancelled 3.5 Chloride Cancelled 105 Carbon Dioxide Cancelled 25.8 Anion Gap Cancelled 10.2 BUN Cancelled 16 Creatinine Cancelled 0.9 Est GFR (CKD-EPI 2020) Cancelled 70.51 Glucose Cancelled 99 Calcium Cancelled 9.0 Magnesium Cancelled 1.8 Total Bilirubin Cancelled 0.6 AST Cancelled 31 ALT Cancelled 41 Alkaline Phosphatase Cancelled 79 Troponin I < 50 Total Protein Cancelled 7.6 Albumin Cancelled 3.8 COVID-19 Source SARS-CoV-2 (PCR) 11/15/21 11/16/21 11/16/21 20:15 00:20 07:30 WBC 6.87 RBC 4.41 Hgb 14.0 Hct 41.1 MCV 93 MCH 31.7 MCHC 34.1 RDW 12.9 Plt Count 195 MPV 10.9 Immature Gran % 0.3 Neutrophils % 59.0 Band Neutrophils % Lymphocytes % 31.9 Atypical Lymphs % Monocytes % 8.4 Eosinophils % 0.0 Basophils % 0.4 Metamyelocytes % Myelocytes % Promyelocytes % Other Cells % Nucleated RBC % 0.0 Absolute Neutrophils 4.05 Absolute Lymphocytes 2.19 Absolute Monocytes 0.58 Absolute Eosinophils 0.00 Absolute Basophils 0.03 RBC Morphology Polychromasia Hypochromasia Poikilocytosis Basophilic Stippling Anisocytosis Microcytosis Macrocytosis Spherocytes Tear Drop Cells Ovalocytes Stomatocytes [place] Bodies [place] Cells/Echinocytes Acanthocytes (Spur) Schistocytes Sodium 140 Potassium 3.7 Chloride 107 Carbon Dioxide 25.8 Anion Gap 7.2 BUN 13 Creatinine 0.7 Est GFR (CKD-EPI 2020) 95.32 Glucose 90 Calcium 8.0 L Magnesium Total Bilirubin 0.4 AST 26 ALT 37 Alkaline Phosphatase 66 Troponin I Total Protein 6.2 L Albumin 3.0 L COVID-19 Source Nasal/Nares SARS-CoV-2 (PCR) Negative 11/16/21 07:30 WBC 6.12 RBC 3.87 L Hgb 12.1 Hct 36.2 MCV 94 MCH 31.3 MCHC 33.4 RDW 13.0 Plt Count 172 MPV 10.9 Immature Gran % 0.2 Neutrophils % 56.8 Band Neutrophils % Lymphocytes % 35.0 Atypical Lymphs % Monocytes % 7.7 Eosinophils % 0.0 Basophils % 0.3 Metamyelocytes % Myelocytes % Promyelocytes % Other Cells % Nucleated RBC % 0.0 Absolute Neutrophils 3.48 Absolute Lymphocytes 2.14 Absolute Monocytes 0.47 Absolute Eosinophils 0.00 Absolute Basophils 0.02 RBC Morphology Polychromasia Hypochromasia Poikilocytosis Basophilic Stippling Anisocytosis Microcytosis Macrocytosis Spherocytes Tear Drop Cells Ovalocytes Stomatocytes [place] Bodies [place] Cells/Echinocytes Acanthocytes (Spur) Schistocytes Sodium Potassium Chloride Carbon Dioxide Anion Gap BUN Creatinine Est GFR (CKD-EPI 2020) Glucose Calcium Magnesium Total Bilirubin AST ALT Alkaline Phosphatase Troponin I Total Protein Albumin COVID-19 Source SARS-CoV-2 (PCR)
[2021-11-16] MEDS: Mometasone 220 MCG 14 DOSE INHALER 2 PUFF IH (09:40)
[2021-11-16] MEDS: Omnipaque 350 MG/ML 100 ML BTL IJ (10:00)
--- NOTE | 2021-11-16 10:00 | DI.CT_ITS ---
Exam(s) CT CHEST PE CTA EXAM: CT CHEST PE CTA CLINICAL HISTORY: dyspnea, syncope. TECHNIQUE: Imaging Protocol: Axial CT angiography was performed with multi-slice acquisition and mu lti-planar reconstructions as well as axial, coronal and sagittal MIP reconstructions. CONTRAST MATERIAL: Intravenous: Omnipaque 350 Contrast volume:100 ml COMPARISON: CR,XR XR CHEST 2V PA LATERAL from 11/15/2021 FINDINGS: Pulmonary Arteries: No evidence of filling defect to suggest pulmonary emboli. Tracheobronchial tree: Patent where visualized. Mediastinum and Silvana: No dominant adenopathy or fluid collection. Pulmonary parenchyma: Mild respiratory motion. Mild atelectasis at left lung base. No consolidation or dominant measurable mass. Pleura: No effusion or pneumothorax. Heart: The heart is not dilated. No coronary artery calcifications are seen. Aorta: Thoracic aorta non-dilated. No aneurysm. No dissection. Upper abdomen: Gallbladder appears somewhat distended, incompletely imaged. No evidence of wall thi ckening. No gross biliary dilatation. Bones: Unremarkable for age. Tubes, Catheters, and Lines: None IMPRESSION: No evidence of pulmonary embolism or other acute abnormality.. RADIATION DOSE DELIVERED: 608.26mGy.cm Total DLP DATA REPOSITORY: All CT scans at this facility are submitted to the National Radiology Data Registry (NRDR) Dose Index Registry (DIR) with the [employer] ([employer]). RADIATION OPTIMIZATION: All CT scans at this facility use at least one of these dose optimization te chniques: automated exposure control; mA and/or kV adjustment per patient size (includes targeted exa ms where dose is matched to clinical indication); or iterative reconstruction.
--- NOTE | 2021-11-16 10:14 | DI.VRAD_ITS ---
PROCEDURE INFORMATION: Exam: CTA Chest With Contrast Exam date and time: 11/16/2021 9:43 AM Age: 66 years old Clinical indication: Other: Dyspnea, syncope TECHNIQUE: Imaging protocol: Computed tomographic angiography of the chest with contrast. 3D rendering (Not supervised by radiologist): MIP and/or 3D reconstructed images were created by the technologist. Contrast material: OMNIPAQUE 350; Contrast volume: 100 ml; Contrast route: INTRAVENOUS (IV); COMPARISON: CR XR CHEST 2V PA LATERAL 11/15/2021 8:56 PM FINDINGS: Pulmonary arteries: No filling defects in the central, lobar, or proximal segmental pulmonary arteries to suggest pulmonary emboli. Normal caliber main pulmonary artery. Aorta: Normal in caliber. Lungs: There are dependent hypoventilatory changes bilaterally. There is minor linear subsegmental atelectasis versus scarring in the left lower lobe. There is no consolidating pneumonia or mass. No suspicious nodules are seen. Pleural spaces: No pleural effusion or pneumothorax. Heart: The heart size is normal. No coronary artery calcifications. No pericardial effusion. Lymph nodes: Unremarkable. No pathologically enlarged mediastinal, hilar, or axillary lymph nodes. Bones/joints: Degenerative changes. No suspicious osseous lesions. Soft tissues: Unremarkable. Other findings: Though incompletely imaged the gallbladder is markedly distended. This is a nonspecific finding which could be physiologic (i.e., due to fasting). IMPRESSION: 1. No acute or suspicious abnormality in the chest. No evidence of pulmonary emboli. 2. Mild linear subsegmental atelectasis versus scarring in the left lower lobe. No consolidation or pleural effusion. 3. Distended gallbladder, a nonspecific finding. This could be further assessed with right upper quadrant ultrasound if clinically warranted. Dictated and Authenticated by: Elle Pelaez MD. Ordering:[facility] Landy Beckham MD
[2021-11-16] MEDS: Escitalopram 20 MG TAB 30 MG PO (10:17)
[2021-11-16] MEDS: lamoTRIgine 100 MG TAB PO (10:18)
[2021-11-16] MEDS: Celecoxib 200 MG CAP 400 MG PO (10:18)
--- NOTE | 2021-11-16 11:19 | W.PM.DS.N ---
Date of service: 11/16/21 Time of Service: 11:19 DS: Diagnosis Discharge Diagnosis (1) Elbow fracture, right: Status: Acute Asessment and Plan: Right humerus and ulnar fracture was placed in a posterior splint and a sling and swath. Patient was prescribed tramadol and ibuprofen to take as needed for pain. Follow-up with an orthopedic surgeon upon return to [place] (2) Syncope: Status: Resolved Asessment and Plan: Patient's syncopal spell was blamed on dehydration poor oral intake while patient was busy working to clean her mother's house and prepare for her mother's internment and celebration of life service. Patient was monitored overnight had no cardiac arrhythmias remained in sinus rhythm. She had normal EKG and negative troponin. She had no symptoms of chest pain. CTA of the chest showed no pulmonary emboli. (3) Reactive airway disease: Status: Acute Asessment and Plan: During this hospitalization patient had no symptoms of exertional dyspnea no cough or sputum production and no audible wheezing. She was prescribed an albuterol inhaler to use as needed along with a spacer device. She will continue her home dose of fluticasone 2 puffs twice daily. 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 X-ray of the humerus suggested linear lucency through the medial epicondyle concerning for fracture. CT of the right upper extremity demonstrated possible fracture through the coronoid process of proximal ulna and an irregularity to the lateral epicondyle of the humerus also worrisome for fracture. Patient was placed in a posterior splint and put in a sling and swath. She was given NSAID and narcotic analgesic for pain and monitored overnight for any arrhythmias. Patient's rhythm remained in normal sinus rhythm and she had no further syncope or near syncopal spells. Because of her exercise-induced hypoxemia CT of her chest was performed to rule out a PE given her recent long distance travel from [place]. CTA showed no suspicious abnormalities in the chest no PE. She has mild linear subsegmental atelectasis versus scarring the left lower lobe but no consolidation or pleural effusion she has a distended gallbladder nonspecific finding. Ambulatory pulse oximetry was performed by respiratory therapy at rest her O2 saturation was 94% she walked 250 feet and her lowest SPO2 was 86% and she quickly recovered to 90% she had no symptoms of shortness of breath or chest pain or palpitations. Patient ordinarily wears home oxygen as she lives at 8500 feet elevation and has reactive airway disease. She was given an albuterol inhaler to use on a as needed basis. Prescription was written for tramadol 50 mg 3 times daily as needed pain along with ibuprofen 800 mg p.o. 3 times daily for the next 5 to 7 days. Home Meds and New Rx's Prescriptions: New ibuprofen 800 mg tablet 800 mg PO TID PRNQty: 30 0RF tramadol 50 mg tablet 50 mg PO Q8H PRNQty: 30 0RF Continued atorvastatin [Lipitor] 10 mg Tablet 10 mg PO DAILY lamotrigine [Lamictal] 100 mg Tablet 100 mg PO DAILY escitalopram oxalate [Lexapro] 20 mg Tablet 30 mg PO DAILY famotidine 40 mg/5 mL (8 mg/mL) Suspension 40 mg PO DAILY fluticasone propionate 220 mcg/actuation Hfa Aerosol Inhaler 2 puff INHALATION BID Discharge Instructions Instructions: Dehydration (DC), Elbow Fracture (DC), How to Use a Sling (DC) Stand Alone Forms: Nursing Discharge Form Referrals: PCP [Other] (Please call to make a follow up appointment when you return home. ) Activity:: Activity as Tolerated Equipment/Supplies:: No Equipment Needed Diet:: Normal Diet Discharge Orders Discharge Orders: Discharge Order (Routine); Ordered 11/16/21 Ordered By: [place] Bill DS: Summary Time Spent with Patient providing and/or coordinating discharge services: Less than 30 minutes Status at Discharge Functional status at discharge: independent ambulation Overall status at discharge: patient is progressing back to baseline Mental Status: mental status grossly normal Speech and Movement: speech and movement normal Mood: congruent mood Affect: normal affect Exam Narrative Exam Narrative: Pleasant obese white female lying in bed in semi-Zhang position Alert and oriented x 3 Lungs are clear to anteriorly Heart is RRR (I did not hear her reported aortic murmur); no thrill or heave Legs: no calf or thigh swelling or tenderness; Donaldo sign is absent Right arm in sling; good capillary refill in fingers, sensation intact, normal movement of fingers/hand Psych Mental Status: mental status grossly normal Speech and Movement: speech and movement normal Mood: congruent mood Affect: normal affect DS: Data Vitals/I&O Vitals and I&O: Vital Signs Temperature 35.8 C L 11/16/21 07:54 Temperature Source Tympanic 11/16/21 07:54 Pulse 67 11/16/21 07:58 Pulse Rhythm Regular 11/16/21 00:58 Respiratory Rate 16 11/16/21 07:54 Respiratory Effort Non-Labored 11/16/21 00:58 Respiratory Depth Normal 11/16/21 00:58 Respiratory Pattern Normal 11/16/21 00:58 Blood Pressure 129/79 11/16/21 07:54 Blood Pressure Position Sitting 11/15/21 19:25 Pulse Oximetry 91 L 11/16/21 07:54 Oxygen Delivery Method Room Air 11/16/21 07:54 Oxygen Flow Rate 0 11/16/21 07:54 Pain Level 3 11/16/21 07:54 Comment 11/16/21 07:54 Intake & Output 11/15/21 11/15/21 11/16/21 11:59 23:59 11:59 Intake Total 1908.75 / 1908.75 Output Total 450 / 450 Balance 1458.75 / 1458.75 Weight 90.718 kg 97.6 kg Intake: IV 1908.75 / 1908.75 Output: Urine 450 / 450 Other: Urine Color Straw Urine Appearance Clear Urine Odor Normal Comment Void x1 in the toilet. Voiding Methods Toilet Data Completed and Pending Labs on day of discharge: Labs from last 24 hours 11/16/21 11/16/21 11/16/21 07:30 07:30 00:20 WBC 6.12 RBC 3.87 L Hgb 12.1 Hct 36.2 MCV 94 MCH 31.3 MCHC 33.4 RDW 13.0 Plt Count 172 MPV 10.9 Immature Gran % 0.2 Neutrophils % 56.8 Band Neutrophils % Lymphocytes % 35.0 Atypical Lymphs % Monocytes % 7.7 Eosinophils % 0.0 Basophils % 0.3 Metamyelocytes % Myelocytes % Promyelocytes % Other Cells % Nucleated RBC % 0.0 Absolute Neutrophils 3.48 Absolute Lymphocytes 2.14 Absolute Monocytes 0.47 Absolute Eosinophils 0.00 Absolute Basophils 0.02 RBC Morphology Polychromasia Hypochromasia Poikilocytosis Basophilic Stippling Anisocytosis Microcytosis Macrocytosis Spherocytes Tear Drop Cells Ovalocytes Stomatocytes [place] Bodies Phil Cells/Echinocytes Acanthocytes (Spur) Schistocytes Sodium 140 Potassium 3.7 Chloride 107 Carbon Dioxide 25.8 Anion Gap 7.2 BUN 13 Creatinine 0.7 Est GFR (CKD-EPI 2020) 95.32 Glucose 90 Calcium 8.0 L Magnesium Total Bilirubin 0.4 AST 26 ALT 37 Alkaline Phosphatase 66 Troponin I Total Protein 6.2 L Albumin 3.0 L COVID-19 Source Nasal/Nares SARS-CoV-2 (PCR) Negative 11/15/21 11/15/21 11/15/21 20:15 20:15 20:08 WBC 6.87 Cancelled RBC 4.41 Cancelled Hgb 14.0 Cancelled Hct 41.1 Cancelled MCV 93 Cancelled MCH 31.7 Cancelled MCHC 34.1 Cancelled RDW 12.9 Cancelled Plt Count 195 Cancelled MPV 10.9 Cancelled Immature Gran % 0.3 Cancelled Neutrophils % 59.0 Cancelled Band Neutrophils % Cancelled Lymphocytes % 31.9 Cancelled Atypical Lymphs % Cancelled Monocytes % 8.4 Cancelled Eosinophils % 0.0 Cancelled Basophils % 0.4 Cancelled Metamyelocytes % Cancelled Myelocytes % Cancelled Promyelocytes % Cancelled Other Cells % Cancelled Nucleated RBC % 0.0 Cancelled Absolute Neutrophils 4.05 Cancelled Absolute Lymphocytes 2.19 Cancelled Absolute Monocytes 0.58 Cancelled Absolute Eosinophils 0.00 Cancelled Absolute Basophils 0.03 Cancelled RBC Morphology Cancelled Polychromasia Cancelled Hypochromasia Cancelled Poikilocytosis Cancelled Basophilic Stippling Cancelled Anisocytosis Cancelled Microcytosis Cancelled Macrocytosis Cancelled Spherocytes Cancelled Tear Drop Cells Cancelled Ovalocytes Cancelled Stomatocytes Cancelled [place] Bodies Cancelled Phil Cells/Echinocytes Cancelled Acanthocytes (Spur) Cancelled Schistocytes Cancelled Sodium 141 Potassium 3.5 Chloride 105 Carbon Dioxide 25.8 Anion Gap 10.2 BUN 16 Creatinine 0.9 Est GFR (CKD-EPI 2021) 70.51 Glucose 99 Calcium 9.0 Magnesium 1.8 Total Bilirubin 0.6 AST 31 ALT 41 Alkaline Phosphatase 79 Troponin I < 50 Total Protein 7.6 Albumin 3.8 COVID-19 Source SARS-CoV-2 (PCR) 11/15/21 20:08 WBC RBC Hgb Hct MCV MCH MCHC RDW Plt Count MPV Immature Gran % Neutrophils % Band Neutrophils % Lymphocytes % Atypical Lymphs % Monocytes % Eosinophils % Basophils % Metamyelocytes % Myelocytes % Promyelocytes % Other Cells % Nucleated RBC % Absolute Neutrophils Absolute Lymphocytes Absolute Monocytes Absolute Eosinophils Absolute Basophils RBC Morphology Polychromasia Hypochromasia Poikilocytosis Basophilic Stippling Anisocytosis Microcytosis Macrocytosis Spherocytes Tear Drop Cells Ovalocytes Stomatocytes [place] Bodies [place] Cells/Echinocytes Acanthocytes (Spur) Schistocytes Sodium Cancelled Potassium Cancelled Chloride Cancelled Carbon Dioxide Cancelled Anion Gap Cancelled BUN Cancelled Creatinine Cancelled Est GFR (CKD-EPI 2020) Cancelled Glucose Cancelled Calcium Cancelled Magnesium Cancelled Total Bilirubin Cancelled AST Cancelled ALT Cancelled Alkaline Phosphatase Cancelled Troponin I Total Protein Cancelled Albumin Cancelled COVID-19 Source SARS-CoV-2 (PCR) PFSH All Active Problems (Updated 11/16/21 @ 11:53 by [place] Bill MD) Reactive airway disease (Acute) Pre-syncope (Acute) Elbow fracture, right (Acute) Social History Smoking/Tobacco Use Status: Never Smoking risk assessment performed?: Yes Alcohol Intake: current Alcohol Intake frequency: 0-2 drinks per day Alcohol type: wine Drug use: Never Substance use type: does not use Do you feel safe at home: Yes Do you feel safe in your relationship?: Yes
== END 2021-11-16 13:12 | disposition home or self-care (01) ==
LOC: ER 11-16 00:01 → MS 11-16 00:49
PROVIDERS: Admitting Provider Family Medicine; Emergency Provider Physician Assistant; Visit Provider Family Medicine
DX: S52.021A Displaced fracture of olecranon process without intraarticular extension of right ulna, initial encounter for closed fracture (principal); S42.441A Displaced fracture (avulsion) of medial epicondyle of right humerus, initial encounter for closed fracture; R55 Syncope and collapse; J45.909 Unspecified asthma, uncomplicated; Z79.899 Other long term (current) drug therapy; Z99.81 Dependence on supplemental oxygen; Z20.822 Contact with and (suspected) exposure to COVID-19; W19.XXXA Unspecified fall, initial encounter
CPT/HCPCS: 29125; 71275; 80053; 87635; 93005; 94618; 94640; 96361; 96374; 96375; 96376; 97162; 99217; 99284; 99285; 70450; 71046; 72125; 73030; 73060; 73080; 73200; 83735; 84484; 85025; 93010; 94664; 94760; 99220; 99238; G0378; J1170; J1644; J2405; J2765; J3010; J3490